=== PATIENT | male | born 1980 | race African-American/Black ===

== ENCOUNTER 2017-12-16 16:24 | Emergency (ER) | payer OTHER, BC ==
[~2017-12-16] VITALS: Wt 68.9 kg
[~2017-12-16 16:24] MED LIST: AUGMENTIN 875 M1 TAB PO; MOTRIN800 MG PO
[2017-12-16] MEDS ORDERED: Motrin,Rufen800 MG PO (18:06)
[2017-12-16] MEDS ORDERED: CYCLOBENZAPRINE5 M3 PO (18:06)
== END 2017-12-16 18:09 | disposition home or self-care (01) ==
LOC: ED 16:24
DX: S66.812A Strain of other specified muscles, fascia and tendons at wrist and hand level, left hand, initial encounter (principal); S09.90XA Unspecified injury of head, initial encounter; F17.200 Nicotine dependence, unspecified, uncomplicated; V49.88XA Car occupant (driver) (passenger) injured in other specified transport accidents, initial encounter; Y93.89 Activity, other specified; Y92.413 State road as the place of occurrence of the external cause; Y99.9 Unspecified external cause status